=== PATIENT | female | born 1975 | race Caucasian/White ===

== ENCOUNTER 2024-07-10 08:07 | Day surgery (SDC) | payer MEDICARE ==
[2024-07-10] MEDS ORDERED: BUPIVACAINE 0.5% VIAL IJ ONE (08:08)
[2024-07-10] MEDS ORDERED: Depo-Medrol 40 MG/ML IM ONE (08:08)
[2024-07-10] MEDS ORDERED: DIPRIVAN 200 MG/20 ML IV ONE (10:14)
[2024-07-10] MEDS ORDERED: Lactated Ringers 1,000 ML IV ONE (10:39)
--- NOTE | 2024-07-10 11:54 | XRAY ---
Indication: Left knee injection. Intraoperative fluoroscopy provided for 12 seconds. Single digital spot image submitted for interpretation demonstrates needle tip projecting over left femur intercondylar notch. Small amount of contrast injected for needle tip placement. Correlate with intraoperative findings/report. Incidental ACL reconstructive anchor screws.
--- NOTE | 2024-07-10 12:06 | XRAY ---
12 seconds of fluoroscopy was used in surgery for a left intra-articular knee injection.
== END 2024-07-10 10:42 ==
LOC: SDC-PAIN 08:07
PROVIDERS: ATTEND Psychiatry & Neurology Pain Medicine
DX: M17.12 Unilateral primary osteoarthritis, left knee (principal); E11.9 Type 2 diabetes mellitus without complications
CPT/HCPCS: 20610; 73560; 77002; 82947; J2704; Q9966